=== PATIENT | female | born 2000 | race African-American/Black ===

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

== ENCOUNTER 2021-12-07 09:52 | Outpatient (REF) | payer MEDICAID, SELFPAY | END 2021-12-07 09:53 | disposition home or self-care (01) | LOC: HO.LAB 09:52 | PROVIDERS: PCP Nurse Practitioner Family; Visit Provider Obstetrics & Gynecology | DX: O99.891 Other specified diseases and conditions complicating pregnancy (principal); R10.30 Lower abdominal pain, unspecified; F12.90 Cannabis use, unspecified, uncomplicated | CPT/HCPCS: 36415; 84702; 99202 ==

== ENCOUNTER 2021-12-14 10:58 | Outpatient (REF) | payer MEDICAID, SELFPAY ==
--- NOTE | ~2021-12-14 | US_ITS ---
EXAMINATION: OBSTETRICAL ULTRASOUND, FIRST TRIMESTER HISTORY: 21-year-old at the 19.5 weeks of gestation Viability LMP: 10/07/2021 Oral contraceptives COMPARISON: None TECHNIQUE: Real time transabdominal imaging with color and M-mode Doppler. FINDINGS: A single, live IUP CRL of 13.8 mm c/w 7.5wks is noted. Heart Rate: 165 beats per minute. Both maternal ovaries are seen and appear normal. GESTATIONAL AGE: 1. GA from LMP: 9.5 wks 2. GA from AUA: 7.5 wks ESTIMATED DATE OF DELIVERY: 1. ALBERTO from LMP: 07/14/2022 2. ALBERTO from AUA: 07/28/2022 US/US OB <= 14 weeks fetus IMPRESSION: 1. A single live IUP 2. Size less than dates, CRL is consistent with 7.5 weeks 3. Adjust ALBERTO to 07/28/2022 based on today's exam Discussion: We discussed the size date discrepancy. She was taking oral contraceptives when she conceived. I informed her that the best ALBERTO for her is 07/28/2022. NT evaluation is scheduled in 5 weeks. Thank you very much for this referral. This note was generated with a voice recognition program. Please excuse any errors which may have been overlooked during my review of this note. Sometimes these errors may affect the content or meaning of a given sentence.
== END 2021-12-14 10:59 | disposition home or self-care (01) ==
LOC: HO.US 10:58
PROVIDERS: PCP Nurse Practitioner Family; Visit Provider Obstetrics & Gynecology
DX: O99.891 Other specified diseases and conditions complicating pregnancy (principal); Z3A.19 19 weeks gestation of pregnancy
CPT/HCPCS: 76801

== ENCOUNTER → 2021-12-24 14:04 | Outpatient (BNVA) | payer MEDICAID, SELFPAY | PROVIDERS: PCP Nurse Practitioner Family; Visit Provider Obstetrics & Gynecology | DX: Z13.89 Encounter for screening for other disorder (principal) ==

== ENCOUNTER 2023-01-25 17:12 | Emergency (ER) | payer MEDICAID, SELFPAY ==
[2023-01-25 17:44] VITALS: BP 117/62; PULSE 97; RESP 16; TEMP 36.6; O2SAT 95; BMI 42.7
--- NOTE | 2023-01-25 17:48 | ED.URI ---
HPI - URI/Sore Throat General Chief Complaint: Upper Respiratory Symptoms Stated Complaint: swollen tonsil,headache Time Seen by Provider: 01/25/23 18:36 Source: patient Mode of arrival: ambulatory Limitations: no limitations History of Present Illness HPI Narrative: Patient is a 22-year-old female who presents emergency department for evaluation of sore throat, mild diffuse headache, swollen painful glands to the neck. Painful swallowing, shaking chills yesterday. Denies neck stiffness, shaking chills, and shortness of breath, difficulty breathing, nausea, vomiting, abdominal pain, numbness or tingling to the extremities, weakness. Related Data Previous Rx's Medication Instructions Recorded penicillin V potassium 500 mg 500 mg PO BID 10 days #20 tabs 01/25/23 tablet Allergies Allergy/AdvReac Type Severity Reaction Status Date / Time No Known Allergies Allergy Verified 01/25/23 17:44 Review of Systems Review of Systems: Yes all other systems are reviewed and are negative [facility] Past Medical History Attestation statement: The following information was validated with the patient. Source: old records reviewed Surgical History H/O wrist surgery Social History Social History Substance Use Type: Marijuana Physical Exam Vital Signs: Vital Signs: Last Vital Signs Temp 97.8 F 01/25/23 17:44 Pulse 97 01/25/23 17:44 Resp 16 01/25/23 17:44 BP 117/62 01/25/23 17:44 Pulse Ox 95 01/25/23 17:44 O2 Del Method Room Air 01/25/23 17:44 BMI result Body Mass Index 42.7 Appearance: Alert.?Oriented to person, place and time. No acute distress.?Normal affect. Eyes: Pupils equal, round and reactive to light.? ENT: 3+ tonsillar hypertrophy bilaterally with white exudates, uvula midline. No trismus, no drooling. Neck: Normal inspection.? Neck supple.??Bilateral cervical lymphadenopathy. No nuchal rigidity, negative Kernig sign, negative Brudzinski sign CVS: Heart sounds normal. Normal heart rate and rhythm.? Pulses normal.?? Respiratory: No respiratory distress.? Lung sounds clear to auscultation bilaterally?? Abdomen: Soft and non-tender. Normoactive bowel sounds. Skin: Skin warm and dry.? Normal skin color.? Extremities: No lower extremity edema. Neuro: Moves all extremities spontaneously. Sensation intact bilaterally. No focal neuro deficits. Ambulates with normal steady gait. Medical Decision Making Medical Decision Making [facility] Narrative: Patient is a 22-year-old female with no reported past medical history presenting to emergency department for evaluation of the sore throat as noted in HPI. She is overall well-appearing, nontoxic, afebrile. No meningismus, nuchal rigidity, no signs of systemic toxicity not consistent with meningitis. Neck pain attributed to lymphadenopathy. No asymmetrical swelling, low suspicion for peritonsillar/retropharyngeal abscess at this time. Significant tonsillar hypertrophy is noted in physical examination, patient provided with dose of oral dexamethasone and tolerated well. Discussed plan of care for treatment of strep pharyngitis with antibiotic, advised alternative forms of contraception. Reviewed worrisome signs and symptoms that would warrant re-evaluation in the emergency department. All questions answered. Stable for discharge. Differential Diagnosis Differential Diagnoses: The differential diagnosis associated with the presentation includes (Viral respiratory infection, rhinovirus, adenovirus, strep pharyngitis, gonococcal pharyngitis, meningitis) Lab Data [facility] Lab Attestation statement: I reviewed the patient's lab results. Labs: Lab Results 01/25/23 Range/Units 17:49 S. pyogenes GrpA STEFF Positive A (Negative) Tests considered The following testing was considered but not selected: I considered CT imaging of the soft tissue neck for evaluation of retropharyngeal/peritonsillar abscess, however physical examination with low suspicion at this time. CT deferred. No indication for lumbar puncture, not consistent with meningitis Prescription Management I considered prescription management with: Antibiotic Discharge Plan Discharge Clinical Impression: Acute streptococcal pharyngitis Patient Disposition: Home, Self-Care Instructions: Strep Throat (ED) Additional Instructions: As discussed, please complete the entire course of antibiotics as prescribed for strep throat. If you are using oral control pills, you will need to use alternative form of control while taking this medication. Please follow-up with your primary care provider for any persistent symptoms. You may return back to emergency department with any new or worsening symptoms or concerns. Prescriptions: New penicillin V potassium 500 mg tablet 500 mg PO BID 10 Days Qty: 20 0RF
[2023-01-25 18:02] LABS: IDNOW Serial# 08D9AD1C; Strep A Nucleic Acid Positive (Negative)
[2023-01-25] MEDS: dexAMETHasone sod phosphate 10 MG/ML VIAL PO (18:44)
== END 2023-01-25 19:14 | disposition home or self-care (01) ==
PROVIDERS: Emergency Provider Internal Medicine
DX: J02.0 Streptococcal pharyngitis (principal); F12.90 Cannabis use, unspecified, uncomplicated
CPT/HCPCS: 87651; 99283; J1100

== ENCOUNTER 2025-02-06 15:24 | Emergency (ER) | payer MEDICAID, SELFPAY ==
[2025-02-06 16:06] VITALS: BP 102/70; PULSE 78; RESP 16; TEMP 36.1; O2SAT 100; BMI 33.4
--- NOTE | 2025-02-06 16:08 | ED_ITS ---
HPI - General Adult General Chief complaint: Back Pain/Injury Stated complaint: quest pinched nerve Time Seen by Provider: 02/06/25 17:57 Source: patient Mode of arrival: ambulatory Limitations: no limitations History of Present Illness ED Provider: Bianca Marlow PA-C HPI narrative: Patient is a 24 year old assigned female at with no reported medical history presenting to the emergency department today with right sided low back pain. Patient states that she was having her usual back pain, then went to bed and woke up with a significantly worse right sided low back pain that radiates into her right leg. Patient denies any dizziness, lightheadedness, abdominal pain, nausea, vomiting, fever, chills, blurry vision, double vision, loss of vision, chest pain, difficulty breathing, shortness of breath, night sweats, pain with urination, increased urinary frequency, increased urinary urgency, blood in her urine or stool, syncope or a near syncopal episode, recent trauma or falls, bowel incontinence, bladder incontinence, or any other complaints at this time. Relieving factors: none Exacerbating factors: none Associated symptoms: denies other symptoms Treatments prior to arrival: none Related Data Previous Rx's ?Medication ?Instructions ?Recorded penicillin V potassium 500 mg 500 mg PO BID 10 days #2 0 tabs 01/25/23 tablet cyclobenzaprine 5 mg tablet 5 mg PO TID PRN muscle spa sm 7 02/06/25 days #21 tabs prednisone 20 mg tablet 20 mg PO DAILY 7 days #7 tab s 02/06/25 Allergies Allergy/AdvReac Type Severity Reaction Status Date / Time No Known Allergies Allergy Verified 02/06/25 16:09 Review of Systems Constitutional: Constitutional: Reports no additional constitutional complaints, Denies chills, Denies fever(s) and Denies night sweats Eyes: Eyes: Reports no additional eye complaints, Denies blurry vision, Denies change in vision, Denies diplopia, Denies eye discharge, Denies loss of vision and Denies eye pain ENT: Denies dizziness Cardiovascular: Cardiovascular: Reports no additional cardiovascular complaints, Denies chest pain, Denies lightheadedness, Denies Loss of Consciousness and Denies dyspnea Respiratory: Respiratory: Reports no additional respiratory complaints and Denies dyspnea Gastrointestinal: Gastrointestinal: Reports no additional gastrointestinal complaints, Denies abdominal pain, Denies melena, Denies hematochezia, Denies change in bowel habits and Denies change in stool character Genitourinary: Genitourinary: Denies hematuria, Denies urinary frequency, Denies dysuria, Denies urinary incontinence, Denies urinary hesitancy and Denies urinary urgency Musculoskeletal: Musculoskeletal: Reports no additional musculoskeletal complaints, Reports back pain, Denies numbness and Denies tingling Neurologic: Denies dizziness, Denies loss of vision, Denies numbness and Denies tingling Psychiatric: Psychiatric: Reports no additional psychiatric complaints Endocrine: Endocrine: Reports no additional endocrine complaints Hematologic/Lymphatic: Hematologic/Lymphatic: Reports no additional hematologic/lymphatic complaints Allergic/Immunologic: Allergic/Immunologic: Reports no additional allergic/immunologic complaints PMFSH Past Medical History Attestation statement: The following information was validated with the patient. Source: old records reviewed and nursing notes reviewed Surgical History H/O wrist surgery Social History Social History Substance Use Type: Marijuana Physical Exam ED Vital Signs: Vital Signs - 24 hr 02/06/25 16:06 02/06/25 18:00 Temperature 96.9 F 98.7 F Pulse Rate 78 79 Respiratory Rate 16 16 Blood Pressure 102/70 132/74 Pulse Oximetry 100 95 Oxygen Delivery Method Room Air Room Air BMI result Body Mass Index 33.4 Const General: cooperative, no acute distress, alert and awake Nutritional Appearance: well nourished Orientation/consciousness: patient oriented x3 HENMT Head: Yes normal to inspection and Yes atraumatic Ears: hearing grossly normal bilaterally and external ears normal General nose exam: Normal external nose present, no nasal discharge noted and no epistaxis Face and sinus: Yes normal facial exam, No abrasion and No laceration Mouth: Normal oral and palatal mucosa present, no drooling and no muffled voice Eyes General: appearance normal, both eyes and all related structures Periorbital: periorbital findings normal Eyelids: Yes eyelids normal Conjunctivae: conjunctivae normal Pupils: Equal, round and reactive pupils present EOM: EOMs intact bilaterally Neck Neck: Yes normal visual inspection, Yes full ROM and Yes no lymphadenopathy Resp Effort & Inspection: normal respiratory effort and able to speak in complete sentences Neuro General: patient oriented x3, moves all extremities and CN's II-XI intact bilaterally Cranial nerves: Yes Equal, round and reactive pupils present Cognition (Neuro): normal cognition Extrem General: Yes normal to inspection, Yes full ROM and Yes capillary refill normal Psych Appearance: grossly normal Mental Status: mental status grossly normal Affect: normal affect Attitude: cooperative Thought process: Normal thought process present Thought content: Normal thought content present Insight: Good insight present (Psych) Course Course Course Narrative: This is a rapid medical exam performed by Vince Brice NP: Additional HPI, ROS, PE not included below will be deferred to primary provider. Patient is a 24-year-old female presenting to the ED with complaint of right sided back pain radiating down right leg and up back to neck since last night. Denies urinary symptoms. Pain worsened when she went to sleep. Plan: UA, afshin Medical Decision Making Medical Decision Making [facility] Narrative: Patient is a 24 year old assigned female at with no reported medical history presenting to the emergency department today with right sided low back pain. Patient's physical exam was unremarkable. Patient's clinical presentation is most consistent with lumbar radiculopathy. I explained my physical exam findings to the patient. I answered all questions asked by the patient. I st ressed the importance of the patient taking her medication as directed (either prescribed or as the over the counter packaging recommends). I stressed the importance of the patient following up with her primary care provider. I stressed the importance of the patient returning to the emergency department immediately if her symptoms were to worsen or if she were to develop any dizziness, shortness of breath, difficulty breathing, chest pain, blurry vision, loss of vision, nausea, vomiting, abdominal pain, fever, chills, back pain, or any other complaints. Patient verbalized agreement and understanding with this treatment plan and discharge. Differential Diagnosis Differential Diagnoses: The differential diagnosis associated with the presentation includes Low back pain Lumbar radiculopathy Admission/Observation Consideration of admission/observation: Escalation of care including admission/observation considered Patient would have been admitted to the hospital had her clinical presentation warranted hospital admission. Prescription Management I considered prescription management with: Pain Medication (patient prescribed pain medication) Discharge Plan Discharge Clinical Impression: Lumbar radiculopathy Patient Disposition: Home, Self-Care Instructions: Lumbar Radiculopathy (ED), Lower Back Exercises (ED) Additional Instructions: Follow up with a primary care provider. Return to the emergency department immediately if your symptoms worsen or if you develop any numbness, tingling, dizziness, shortness of breath, difficulty breathing, chest pain, blurry vision, loss of vision, nausea, vomiting, abdominal pain, fever, chills, back pain, or any other complaints. If you do not have a primary care provider - call any of the below numbers to establish and follow up with a primary care provider. [facility] ([place]) [phone] [place] [address], [address] [facility] ([address] [place]) [phone] [place] [address], [address] [facility], [address] [facility] ([address] [place]) [phone] [place] [address], [address] [facility], [address] [facility] ([place]) [phone] [place] [address] 2 [facility], [address] [facility] Family Medicine [phone] [place] [address], [address] Please see the information below about our Patient Portal. If you are not yet enrolled in the [facility] Patient Portal, you will receive an enrollment email invitation following your visit to any [facility] setting. You may also self-enroll in the Patient Portal by visiting our website: [email or web address] The following information is required to access the Patient Portal: - Your [facility] Medical Record Number - Your personal home email address (must match what is in your electronic medical record, Registration staff can assist with this) - Name - Date of Capabilities of the Patient Portal: - Message some providers - View upcoming appointments - Access your health summary, medical history, and visit history - View current conditions and allergies - View procedure and lab results - View your medications, including guidelines, side effects, and precautions - Complete pre-appointment questionnaires requested by your provider - Ready summary reports of your office visits and procedures To access the Patient Portal Mobile [employer], follow these directions: - Search [facility] in the [employer] Store or [employer] Store - Download the [employer] - Search for [facility] - Enter your login/password Prescriptions: New cyclobenzaprine 5 mg tablet 5 mg PO TID PRN (Reason: muscle spasm) 7 Days Qty: 21 0RF prednisone 20 mg tablet 20 mg PO DAILY 7 Days Qty: 7 0RF No Action penicillin V potassium 500 mg tablet 500 mg PO BID 10 Days Qty: 20 0RF Stand Alone Forms: Work/School Release Print Language: Slovak
[2025-02-06 18:00] VITALS: BP 132/74; PULSE 79; RESP 16; TEMP 37.1; O2SAT 95
[2025-02-06 18:17] VITALS: BP 132/74; PULSE 79; RESP 16; TEMP 37.1; O2SAT 95
== END 2025-02-06 18:18 | disposition home or self-care (01) ==
LOC: HO.ED 18:05
PROVIDERS: Emergency Provider Emergency Medicine; PCP Advanced Practice Midwife
DX: M54.16 Radiculopathy, lumbar region (principal)
CPT/HCPCS: 96372; 99284; J1885